=== PATIENT | female | born 1980 | race African-American/Black ===

== ENCOUNTER 2019-04-03 10:15 | Emergency (ER) | payer MEDICAID, OTHER ==
[~2019-04-03] VITALS: Ht 175.3 cm; Wt 55.4 kg
[~2019-04-03 10:15] MED LIST: PREN-55 PO
[2019-04-03] MEDS ORDERED: AZITHROMYCIN 500 MG TABLET PO ONE (12:15)
[2019-04-03] MEDS ORDERED: LIDOCAINE HCL/PF 1% 10 MG/ML 5ML VIAL IJ ONE (12:15)
[2019-04-03] MEDS ORDERED: CEFTRIAXONE SODIUM 250 MG/VIAL IM ONE (12:15)
[2019-04-03] MEDS ORDERED: PENICILLIN G BENZATHINE 2,400,000 UNITS/4ML SYR IM ONE (12:30)
[2019-04-03 13:21] VITALS: BP 110/65
[2019-04-04 05:11] LABS: HIV SCREEN 4G Non Reactive (Non Reactive)
[2019-04-07 08:12] LABS: NEISSERIA GONORRHOEAE NAA Negative (Negative)
== END 2019-04-03 13:23 | disposition home or self-care (01) ==
LOC: ER 10:15
DX: A54.9 Gonococcal infection, unspecified (principal)
CPT/HCPCS: 86592; 87210; 87389; 87491; 87591; 96372; 99283; J0561; J0696; J3490; Z7610